=== PATIENT | male | born 1995 | race Caucasian/White ===

== ENCOUNTER 2017-04-13 15:50 | Emergency (ER) | payer BC ==
[~2017-04-13] VITALS: Ht 185.4 cm; Wt 84.8 kg
[2017-04-13 15:54] VITALS: PULSE 65; TEMP 36.9; O2SAT 99; Ht 185.4 cm; Wt 84.8 kg
[2017-04-13] MEDS ORDERED: XYLOCAINE 1%/SOD BICARB 20 ML VIAL INFIL ONE (16:30)
--- NOTE | 2017-04-13 20:46 | EMERGENCY ROOM VISIT NOTE ---
History First contact with patient: 16:19 Chief Complaint: LACERATION/CUT (SUT/DERMABOND) Stated Complaint: LACERATION TO LEFT HAND, 2ND DIGIT Nursing Triage Summary: triage note; pt reports he cut his left second finger while opening a metal can of chicken at approx 1530 today. History of Present Illness The patient is a 22 year old male who presents to the Emergency Room with complaints of a laceration to his left index finger. The patient cut his finger while opening a can of chicken. He denies any loss of function, paresthesias or numbness of the finger. He does report moderate bleeding. He rates his discomfort a 3 out of 10. Tetanus immunization is up-to-date, and the patient is [id number]. Review of Systems 6 system review was performed and was negative except for pertinent positives and negatives as indicated in history of present illness Past Medical/Surgical History Medical Problems: (1) No significant past medical history Surgical Problems: (1) No history of previous surgery Family History Unremarkable Social History Smoking Status: Never Smoker Alcohol Use: occasionally Drug Use: cocaine Occupation Status: [employer] student Physical Exam Vital Signs Date Time Temp Pulse Resp B/P (MAP) Pulse Ox O2 Delivery O2 Flow Rate FiO2 18 15:54 36.9 65 18 99 Room Air Physical Exam CONSTITUTIONAL: Healthy and well nourished. Alert and oriented X 3 with positive affect. HEENT: Normocephalic, atraumatic. Pupils equal, round and reactive. NECK: Full active range of motion without discomfort. MUSCULOSKELETAL: Examination of the left index finger shows a flap laceration of the digital pad with a total laceration length of 2 cm. No active bleeding noted on exam. There is no involvement of the nail plate. Capillary refill is less than 2 seconds. INTEGUMENTARY: No rash or other significant dermatologic conditions noted. NEUROLOGIC: Left index finger is sensory intact. Medical Decision & Procedures Procedure Laceration repair was performed under digital block anesthesia after receiving verbal consent from the patient. Using buffered 1% lidocaine without epinephrine, good digital block anesthesia was administered. The wound was then peripherally cleansed with iodine, then copiously pressure irrigated with normal saline. A tourniquet was applied for better visualization. The wound was then approximated using 5-0 nylon simple sutures. The tourniquet was removed with no active bleeding. The patient tolerated the procedure well. Bacitracin dressing was applied. ED Course Patient history and physical exam were performed. Nurse's notes were reviewed. Vital signs were reviewed and normal. Laceration repair was performed under digital block anesthesia. The patient was provided additional verbal and written wound care instructions. Tylenol and ibuprofen as needed for pain. Watch for any signs of infection, and suture removal in 2 weeks. The patient was happy with plan of care, voiced understanding of all discharge instructions , and denied any pain at the conclusion of my exam. Medical Decision Blood Pressure Screening Patient's blood pressure: Normal blood pressure Impression Primary Impression: Laceration of left index finger Departure Information Dispostion Home / Self-Care Condition GOOD Referrals No Doctor, Assigned [facility] (PCP) Forms HOME CARE DOCUMENTATION FORM, IMPORTANT VISIT INFORMATION Patient Instructions My [facility] Additional Instructions Keep wound clean and dry. Do not allow any crusting or dried blood to accumulate on sutures. If this occurs, use a 1:1 solution of hydrogen peroxide/ water on a Q-tip to clean the wound. Use an antibiotic ointment for 3-4 days, then let wound dry. Suture removal in 14 days. Return sooner for any signs of infection (increasing redness, swelling, drainage). Elevate if needed for swelling and pain. DO NOT apply an ice pack to finger. Ibuprofen 600 mg and/or Tylenol 1000 mg every 6 hrs as needed for pain. Problem Qualifiers Primary Impression: Laceration of left index finger Encounter type: initial encounter Damage to nail status: without damage Foreign body presence: without foreign body Qualified Codes: S61.211A - Laceration without foreign body of left index finger without damage to nail, initial encounter
== END 2017-04-13 17:33 | disposition home or self-care (01) ==
LOC: C.EDB 15:53 → C.EDD 17:33
DX: S61.211A Laceration without foreign body of left index finger without damage to nail, initial encounter (principal); W26.8XXA Contact with other sharp object(s), not elsewhere classified, initial encounter; Y93.89 Activity, other specified; Y99.8 Other external cause status